=== PATIENT | female | born 1960 | race African-American/Black ===

== ENCOUNTER 2020-11-27 11:02 | Emergency (ER) | payer MEDICARE ==
[2020-11-27 11:27] LABS: Bilirubin Neg (Negative); Blood, Urine 25 (Negative); Glucose, Urine (Dipstick) Normal (Negative); Ketone, Urine 5 mg/dL (Negative); Leukocyte 100 (Negative); Nitrite Negative (Negative); Protein, Urine (Dipstick) Negative (Neg-Trace); Specific Gravity, Urine 1.025 (1.002-1.036)
[2020-11-27 11:40] LABS: Clarity Clear (Clear)
[2020-11-27 11:41] LABS: Renal Epithelial 0-3 HPF (None Seen); Squamous Epithelial 0-3 HPF (0-3); WBC/HPF 0-3 HPF (0-3)
[2020-11-27 11:42] LABS: Bacteria/HPF Rare-Few HPF (None Seen); Mucous/LPF Rare LPF (<2+)
== END 2020-11-27 12:35 | disposition home or self-care (01) ==
LOC: CSHERS 11:02
DX: N39.0 Urinary tract infection, site not specified (principal); F17.210 Nicotine dependence, cigarettes, uncomplicated
CPT/HCPCS: 74176; 81003; 81015

== ENCOUNTER 2021-07-09 05:36 | Emergency (ER) | payer MEDICARE | END 2021-07-09 06:16 | disposition home or self-care (01) | LOC: CSHERS 05:36 | DX: J02.9 Acute pharyngitis, unspecified (principal); F17.210 Nicotine dependence, cigarettes, uncomplicated | CPT/HCPCS: 99282 ==

== ENCOUNTER 2021-12-31 13:06 | Observation (INO) | payer MEDICARE ==
[2021-12-31 13:59] LABS: Bilirubin Neg (Negative); Blood, Urine 25 (Negative); Clarity Clear (Clear); Glucose, Urine (Dipstick) Normal (Negative); Ketone, Urine Negative (Negative); Leukocyte Negative (Negative); Nitrite Negative (Negative); Protein, Urine (Dipstick) Negative (Neg-Trace); Urobilinogen Normal mg/dL (Less than 2)
[2021-12-31 14:01] LABS: #Basophils 0.1 10x3/uL (0.0-0.2); #Eosinphils 0.1 10x3/uL (0.0-0.5); #Monocytes 0.3 10x3/uL (0.0-1.1); #Neutrophils 3.1 10x3/uL (1.5-8.4); %Basophils 0.9 % (0.0-2.0); %Eosinophils 1.1 % (0.0-6.0); %Lymphocytes 46.7 % (18.0-47.0); %Monocytes 4.6 % (0.0-10.0); %Neutrophils 46.5 % (40.0-75.0); Hemoglobin 12.3 g/dL (12.0-15.5); Mean Corpuscular HGB CONC 33.2 g/dL (32.0-36.0); Mean Corpuscular Hemoglobin 30.8 pg (27.0-33.0); Mean Platelet Volume 9.4 fl (7.4-10.4); Platelet Count 252 10x3/uL (150-450); RBC Distribution Width 12.4 % (11.5-14.5); Red Blood Cell (RBC) Count 3.99 10x6/uL (3.90-5.03); White Blood Cell (WBC) Count 6.6 10x3/uL (3.5-10.5)
[2021-12-31 14:07] LABS: Bacteria/HPF None Seen HPF (None Seen); Squamous Epithelial 0-3 HPF (0-3); WBC/HPF 0-3 HPF (0-3)
[2021-12-31 14:15] LABS: ALT (SGPT) 17 U/L (8-55); AST (SGOT) 24 U/L (5-34); Albumin 4.3 g/dL (3.4-4.8); Alkaline Phosphatase 129 U/L (40-110); Anion Gap 11 mmol/L (10-20); BUN (Urea Nitrogen) 7 mg/dL (9.8-20.1); Bilirubin, Total 0.3 mg/dL (0.2-1.2); Calc. Creatinine Clearance 0 mL/min (70-130); Carbon Dioxide 28 mmol/L (23-31); Chloride 106 mmol/L (98-107); Globulin 2.7 g/dL (2.4-3.5); Glucose 85 mg/dL (80-115); Sodium 141 mmol/L (136-145)
[2021-12-31 19:03] VITALS: BMI 25.9
[2021-12-31] MEDS ORDERED: Ondansetron PF 4 MG/2 ML Vial IVP PRN (19:04)
[2021-12-31] MEDS ORDERED: Senokot S 8.6-50 MG TAB PO PRN (19:04)
[2021-12-31] MEDS ORDERED: Calcium Carbonate 500 MG ChewTAB PO PRN (19:04)
[2021-12-31] MEDS ORDERED: Meclizine HCl 12.5 MG TAB PO SCH (20:45)
[2021-12-31] MEDS ORDERED: predniSONE 20 MG TAB PO SCH (20:45)
[2021-12-31] MEDS ORDERED: Lactated Ringer's 1,000 ML IV SCH (20:45)
[2021-12-31] MEDS ORDERED: Nicotine 21 MG PATCH TD SCH (21:00)
[2021-12-31] MEDS: Acetaminophen 325 MG TAB PO PRN (21:07)
[2021-12-31] MEDS: Gabapentin 100 MG CAP PO SCH (21:08)
[2021-12-31 21:22] LABS: Cardiac Risk 4.3 (Less than 4.5)
[2022-01-01 02:22] LABS: SARS-CoV-2 NAA Rapid Test Not Detected (NotDetected)
[2022-01-01] MEDS: Gabapentin 100 MG CAP PO SCH ×2 (08:28→14:56)
[2022-01-01] MEDS: traMADol HCl 50 MG TAB PO PRN ×2 (08:36→15:04)
[2022-01-01] MEDS ORDERED: Enoxaparin Sodium 40 MG/0.4 ML SYRINGE SC SCH (09:00)
[2022-01-01] MEDS: Acetaminophen 325 MG TAB PO PRN (12:21)
[2022-01-01 15:44] VITALS: BP 122/84; TEMP 99
== END 2022-01-01 15:40 | disposition home or self-care (01) ==
LOC: CSHERS 13:06 → CSHTELE 18:45 → UNDOADMIN 18:45 → CSHTELE 19:05 → INTOOBSV 01-01 03:23
PROVIDERS: ADMIT Internal Medicine; ATTEND Internal Medicine
DX: R55 Syncope and collapse (principal); R42 Dizziness and giddiness; G62.9 Polyneuropathy, unspecified; M19.90 Unspecified osteoarthritis, unspecified site; R03.0 Elevated blood-pressure reading, without diagnosis of hypertension; F20.9 Schizophrenia, unspecified; Z98.84 Bariatric surgery status; Z72.0 Tobacco use; Z20.822 Contact with and (suspected) exposure to COVID-19
CPT/HCPCS: 70450; 70551; 71045; 80061; 82962; 84484 ×2; 93005; 93880; U0002; 36415; 36416; 80053; 81003; 81015; 84443; 85025; 96372; G0378; J1650; J7120; J7512